=== PATIENT | female | born 1990 | race Caucasian/White ===

== ENCOUNTER 2016-06-12 23:43 | Emergency (ER) | payer OTHER ==
[2016-06-12 23:53] VITALS: BP 136/72; PULSE 118; TEMP 99.8; BMI 20.7
--- NOTE | 2016-06-13 00:05 | PDOC ---
History of Present Illness - General History Source: Patient Exam Limitations: No Limitations - History of Present Illness Initial Comments: 06/13/16 01:03 The patient is a 26 year old female, with no significant past medical history, who presents today complaining of 1 day of fever, and 1 week of sore throat, bilateral ear pain, and headache. The patient states that the fever started yesterday and was 101 degrees today. She states that she has been taking Excedrin with mild relief. She reports that her ears are bothering her the most and describes the pain as though both ears popped. She states that she did not get a flu shot this year. Denies chills, nausea, vomiting. Denies abdominal pain. Allergies: none reported PCP- <Mita Justice - Last Filed: 06/13/16 01:03> <Vasquez Bowen - Last Filed: 06/13/16 01:43> - General Chief Complaint: Cold Symptoms Stated Complaint: COLD SYMPTOMS Time Seen by Provider: 06/13/16 00:05 Past History <Mita Justice - Last Filed: 06/13/16 01:03> - Past Medical History Other medical history: denies - Psycho/Social/Smoking Cessation Hx Suicidal Ideation: No Smoking History: Unknown if ever smoked Hx Alcohol Use: No Drug/Substance Use Hx: No <Vasquez Bowen - Last Filed: 06/13/16 01:43> - Past Medical History Allergies/Adverse Reactions: Allergies Allergy/AdvReac Type Severity Reaction Status Date / Time No Known Allergies Allergy Verified 06/12/16 23:51 Home Medications: Ambulatory Orders Azithromycin [Zithromax 250mg Tablets -] 250 mg PO UTDICT #6 tab 06/13/16 Review of Systems - Review of Systems Comments:: 06/13/16 01:03 CONSTITUTIONAL: +fever. No chills, no fatigue EYES: No visual changes ENT: +ear pain, + sore throat CARDIOVASCULAR: No chest pain, no palpitations RESPIRATORY: No cough, no SOB GI: No abdominal pain, no nausea, no vomiting, no constipation, no diarrhea GENITOURINARY: No dysuria, no frequency, no hematuria MUSKULOSKELETAL: No backpain, no joint pain, no myalgias SKIN: No rash NEURO: No headache <Mita Justice Last Filed: 06/13/16 01:03> *Physical Exam - Vital Signs Last Vital Signs Temp Pulse Resp BP Pulse Ox 99.8 F H 118 H 18 136/72 96 06/12/16 23:51 06/12/16 23:51 06/12/16 23:51 06/12/16 23:51 06/12/16 23:51 - Physical Exam Comments: 06/13/16 01:03 CONSTITUTIONAL: Well-appearing; well-nourished; in no apparent distress HEAD: Normocephalic; atraumatic EYES: PERRL; EOM intact ENMT: Minimal pharyngeal erythema. External appears normal; normal oropharynx. Cerumen impaction in the right ear NECK: Supple; non-tender; no cervical lymphadenopathy CARD: Normal S1, S2; no murmurs, rubs, or gallops RESP: Normal chest excursion with respiration; breath sounds clear and equal bilaterally; no wheezes, rhonchi, or rales ABD: Soft, non-distended; non-tender; no palpable organomegaly, no palpable hernias EXT: Normal ROM in all four extremities; non-tender to palpation; distal pulses intact SKIN: Warm, dry, no rash NEURO: No focal neurological deficiencies. <Mita Justice - Last Filed: 06/13/16 01:03> - Vital Signs Last Vital Signs Temp Pulse Resp BP Pulse Ox 99.8 F H 118 H 18 136/72 96 06/12/16 23:51 06/12/16 23:51 06/12/16 23:51 06/12/16 23:51 06/12/16 23:51 <Vasquez Bowen - Last Filed: 06/13/16 01:43> *DC/Admit/Observation/Transfer - Attestations Scribe Attestion: 06/13/16 01:04 Documentation prepared by KASHIF Garcia, acting as medical secretary for Vasquez Bowen MD. <Mita Justice - Last Filed: 06/13/16 01:03> - Attestations Physician Attestion: 06/13/16 01:37 Patient is a well-appearing 26-year-old female who presents with signs and symptoms of acute bronchitis. In the ER, patient is awake and alert, nontoxic appearing, with normal stable vital signs. Patient's influenza swab is noted to be negative at this time. Will discharge with [facility] with PMD follow-up. <Vasquez Bowen - Last Filed: 06/13/16 01:43> Diagnosis at time of Disposition: Acute bronchitis Qualifiers: Bronchitis organism: unspecified organism Qualified Code(s): J20.9 - Acute bronchitis, unspecified - Discharge Dispostion Disposition: HOME Condition at time of disposition: Stable - Referrals Referrals: Carmen Shin MD [Primary Care Provider] - - Patient Instructions Printed Discharge Instructions: DI for Acute Bronchitis
== END 2016-06-13 01:52 | disposition home or self-care (01) ==
LOC: JER 23:43
DX: J20.9 Acute bronchitis, unspecified (principal)
CPT/HCPCS: 87804; 99281-25